=== PATIENT | male | born 1945 | race Caucasian/White ===

== ENCOUNTER → 2018-06-11 | Outpatient (REF) | payer MEDICARE, BC ==
[~2018-06-11] MED LIST: ALLOPURINOL100 MG; ALLOPURINOL100 MG PO; CARAFATE1 GM PO; CIPRO XR500 M2 PO; LIPITOR10 MG; LIPITOR40 MG PO; LISINOPRIL10 MG PO; LISINOPRIL2.5 MG; LORTAB 7.57.5 MG PO; MINOCYCLINE100 MG PO; MINOCYCLINE50 MG PO; NEXIUM40 M1 PO; NO MEDS; SUCRALFATE1 GM PO
[2018-06-11 12:08] LABS: HEMOGLOBIN 14.9 g/dl (14.0-18.0); IMMATURE GRANULOCYTES 0.4 % (0.0-5.0); MEAN CELL VOLUME 86.7 fL CALC (80.0-100.0); MEAN CORPUSCULAR HGB CONC 34.7 g/L CALC (32.0-36.0); NEUT# 6.9 thou/uL (1.82-7.42); RED BLOOD COUNT 4.96 mill/uL (4.70-6.10); RED CELL DISTRI WIDTH 13.9 % (11.5-15.5)
[2018-06-11 12:32] LABS: ALBUMIN 4.3 g/dL (3.2-5.0); ALKALINE PHOSPHATASE 95 u/l (38-126); BILIRUBIN, TOTAL 1.1 mg/dL (0.0-1.4); BUN 12 mg/dL (8-23); BUN/CREATININE RATIO 19 (12-20 (CALC)); CARBON DIOXIDE 26 mmol/l (22-30); CREATININE 0.7 mg/dL (0.7-1.3); GFR > 60 ML/MIN (>=60 (CALC)); GFR FOR AFR.AMER. > 60 ML/MIN (>=60 (CALC)); SGOT/AST 33 u/l (19-48); TOTAL PROTEIN 7.1 g/dL (6.3-8.2)
[2018-06-11 12:34] LABS: ANION GAP 16 (6-22 (CALC)); CHLORIDE 92 mmol/l (95-108); SODIUM 130 mmol/l (137-146)
== END | disposition home or self-care (01) ==
LOC: LAB 11:43
PROVIDERS: ATTEND Internal Medicine
DX: R06.09 Other forms of dyspnea (principal); I10 Essential (primary) hypertension